=== PATIENT | male | born 1955 | race Caucasian/White ===

== ENCOUNTER 2018-01-05 14:00 | Inpatient (IN) | payer BC ==
[2018-01-05 14:25] VITALS: BMI 22.5
[2018-01-05 15:07] LABS: #Lymphocytes 1.1 thou/uL (1.20-3.40); #Monocytes 0.5 thou/uL (0.11-0.59); #Neutrophils 6.4 thou/uL (1.40-6.50); %Basophils 0.5 % (0.0-1.0); %Eosinophils 0.4 % (0.0-10.0); %Lymphocytes 13.9 % (21.0-51.0); %Monocytes 6.2 % (0.0-10.0); %Neutrophils 79.1 % (42.0-75.0); Mean Corpuscular HGB CONC 33.6 g/dL (32.0-36.0); Mean Corpuscular Hemoglobin 31.4 pg (27.0-31.0); Mean Corpuscular Volume 93.4 fl (80.0-94.0); Mean Platelet Volume 6.7 fL (7.4-10.4); Platelet Count 182 thou/uL (130-400); RBC Distribution Width 12.1 % (11.5-14.5); Red Blood Cell (RBC) Count 5.08 mill/uL (4.70-6.10); White Blood Cell (WBC) Count 8.1 thou/uL (4.8-10.8)
[2018-01-05 15:25] LABS: Anion Gap 15 mmol/L (10-20); BUN (Urea Nitrogen) 15 mg/dL (8.4-25.7); Calc. Creatinine Clearance 95 mL/min (70-130); Calcium 9.1 mg/dL (7.8-10.44); Carbon Dioxide 25 mmol/L (23-31); Chloride 104 mmol/L (98-107); Estimated GFR-MDRD Greater than 90; Glucose 106 mg/dL (80-115); Potassium 3.8 mmol/L (3.5-5.1); Sodium 140 mmol/L (136-145)
[2018-01-05 15:38] LABS: CKMB 13.4 ng/mL (0-6.6); Troponin I 2.109 ng/mL (< 0.028)
[2018-01-05] MEDS ORDERED: Iopamidol 370 76% 50 ML VIAL FS ONE (15:48)
[2018-01-05] MEDS ORDERED: Iopamidol 370 76% 100 ML VIAL ONE (15:48)
[2018-01-05] MEDS ORDERED: Communication Order-Pharmacy FS SCH (16:30)
[2018-01-05] MEDS ORDERED: Carvedilol 3.125 MG TAB PO SCH ×2 (17:00→21:00)
[2018-01-05] MEDS ORDERED: Lidocaine 1% (PF) 30 ML VIAL ONE (17:01)
[2018-01-05] MEDS: Nitroglycerin 2% Ointment 1 INCH/1 GM Packet TOP SCH (17:20)
[2018-01-05] MEDS ORDERED: Fentanyl 250 MCG/5 ML VIAL ONE (17:29)
[2018-01-05] MEDS ORDERED: Midazolam HCl 2 mg/2 ml Vial ONE (17:29)
[2018-01-05] MEDS ORDERED: Nitroglycerin 100MG/250ML BOT 250 ML ONE (17:33)
[2018-01-05] MEDS ORDERED: Verapamil 5 MG/2 ML VIAL ONE (17:33)
[2018-01-05] MEDS ORDERED: Adenosine 6 MG/2 ML VIAL ONE (17:33)
[2018-01-05] MEDS ORDERED: Heparin 10,000 UNITS/1 ML VIAL ONE (18:10)
[2018-01-05] MEDS ORDERED: TICAGRELOR 90 MG TABLET ONE (18:10)
[2018-01-05] MEDS ORDERED: cloNIDine 0.1 MG TAB PO PRN (18:16)
[2018-01-05] MEDS ORDERED: Zolpidem Tartrate 5 MG TAB PO PRN ×2 (18:16→19:00)
[2018-01-05] MEDS ORDERED: Acetaminophen/Codeine 30-300mg Tablet PO PRN ×2 (18:16→19:00)
[2018-01-05] MEDS ORDERED: traMADol HCl 50 MG TAB PO PRN ×2 (18:16→19:00)
[2018-01-05] MEDS ORDERED: Sodium Chloride 0.9% 1,000 ML IV SCH ×2 (18:30→19:00)
[2018-01-05] MEDS ORDERED: Mag-Al 1200 mg/1200 mg/30 ML UDCUP PO PRN (19:00)
[2018-01-05] MEDS ORDERED: Milk Of Magnesia 30 ML UDCUP PO PRN (19:00)
[2018-01-05 20:34] LABS: CKMB 12.7 ng/mL (0-6.6); Troponin I 4.016 ng/mL (< 0.028)
[2018-01-05] MEDS: Atorvastatin Calcium 40 MG TAB PO SCH (20:53)
[2018-01-05] MEDS: TICAGRELOR 90 MG TABLET PO SCH (20:59)
[2018-01-05] MEDS: Carvedilol 3.125 MG TAB PO SCH (21:06)
[2018-01-06] MEDS: Nitroglycerin 2% Ointment 1 INCH/1 GM Packet TOP SCH ×2 (02:48→08:30)
[2018-01-06 05:40] LABS: #Eosinphils 0.2 thou/uL (0.0-0.7); #Lymphocytes 1.2 thou/uL (1.20-3.40); #Monocytes 0.8 thou/uL (0.11-0.59); #Neutrophils 4.5 thou/uL (1.40-6.50); %Basophils 0.6 % (0.0-1.0); %Eosinophils 2.8 % (0.0-10.0); %Lymphocytes 17.9 % (21.0-51.0); %Monocytes 11.7 % (0.0-10.0); Hemoglobin 13.8 g/dL (14.0-18.0); Mean Corpuscular HGB CONC 33.9 g/dL (32.0-36.0); Mean Corpuscular Hemoglobin 31.8 pg (27.0-31.0); Mean Corpuscular Volume 93.6 fl (80.0-94.0); Mean Platelet Volume 6.8 fL (7.4-10.4); Platelet Count 146 thou/uL (130-400); RBC Distribution Width 11.9 % (11.5-14.5); Red Blood Cell (RBC) Count 4.36 mill/uL (4.70-6.10); White Blood Cell (WBC) Count 6.7 thou/uL (4.8-10.8)
[2018-01-06 05:55] LABS: ALT (SGPT) 12 U/L (8-55); AST (SGOT) 26 U/L (5-34); Albumin 3.4 g/dL (3.4-4.8); Alkaline Phosphatase 77 U/L (40-150); Anion Gap 8 mmol/L (10-20); BUN (Urea Nitrogen) 15 mg/dL (8.4-25.7); Bilirubin, Total 1.1 mg/dL (0.2-1.2); Calc. Creatinine Clearance 95 mL/min (70-130); Calcium 8.7 mg/dL (7.8-10.44); Carbon Dioxide 29 mmol/L (23-31); Cardiac Risk 3.7 (Less than 4.5); Chloride 106 mmol/L (98-107); Cholesterol 143 mg/dl (< 200 Desired); Estimated GFR-MDRD Greater than 90; Globulin 1.9 g/dL (2.4-3.5); Glucose 102 mg/dL (80-115); HDL Cholesterol 39 mg/dL (>60 Neg Risk); LDL Cholesterol, Calculated 92 mg/dL; Potassium 4.2 mmol/L (3.5-5.1); Protein, Total 5.3 g/dL (5.8-8.1); Sodium 139 mmol/L (136-145); Triglycerides 62 mg/dL (Less than 150)
[2018-01-06] MEDS ORDERED: Sodium Chloride 0.9% 1,000 ML IV SCH (06:00)
[2018-01-06] MEDS ORDERED: Diazepam 10 MG/2 ML SYRINGE IVP SCH (06:00)
[2018-01-06] MEDS: TICAGRELOR 90 MG TABLET PO SCH ×2 (09:48→20:45)
[2018-01-06] MEDS: Carvedilol 3.125 MG TAB PO SCH ×2 (09:48→20:45)
[2018-01-06] MEDS: Atorvastatin Calcium 40 MG TAB PO SCH (20:45)
[2018-01-07] MEDS: Carvedilol 3.125 MG TAB PO SCH (08:46)
[2018-01-07] MEDS: TICAGRELOR 90 MG TABLET PO SCH (08:46)
[2018-01-07 12:25] VITALS: BP 108/58
[2018-01-07 12:52] VITALS: TEMP 97.8
--- NOTE | 2018-01-07 18:37 | EKG ---
Test Reason : Blood Pressure : / mmHG Vent. Rate : 068 BPM Atrial Rate : 068 BPM P-R Int : 170 ms QRS Dur : 090 ms QT Int : 402 ms P-R-T Axes : 066 050 040 degrees QTc Int : 427 ms Normal sinus rhythm Normal ECG No previous ECGs available Confirmed by RAJ HOLLOWAY, DR. Jaquez (4) on 01/07/2018 6:37:02 PM Referred By: DA Confirmed By:DR. Leonid ANTHONY MD
--- NOTE | 2018-01-07 18:38 | EKG ---
Test Reason : Blood Pressure : / mmHG Vent. Rate : 065 BPM Atrial Rate : 065 BPM P-R Int : 172 ms QRS Dur : 096 ms QT Int : 404 ms P-R-T Axes : 071 057 050 degrees QTc Int : 420 ms Normal sinus rhythm Normal ECG When compared with ECG of 05-JAN-2018 23:57, (Unconfirmed) No significant change was found Confirmed by RAJ HOLLOWAY, . S. (4) on 01/07/2018 6:37:55 PM Referred By: DA Confirmed By:DR. Leonid ANTHONY MD
[2018-01-08] MEDS ORDERED: Lisinopril 2.5 MG TAB PO SCH (09:00)
--- NOTE | 2018-01-09 13:10 | DIS ---
DATE OF ADMISSION: 01/05/2018 DATE OF DISCHARGE: 01/07/2018 DISCHARGE MEDICATIONS: Aspirin 81 q.a.m., atorvastatin 40 q.a.m., carvedilol 3.125 one p.o. b.i.d., lisinopril 0.5 mg daily, and Brilinta 90 mg b.i.d. Follow up with Dr. Barreto in 1-2 weeks. HOSPITAL COURSE: Mr. Mehta is a very pleasant gentleman, who I saw and evaluated in the office. He h ad signs and symptoms suggesting unstable angina. He was subsequently admitted. Initial troponin wa s positive. He continued to have pain. He then underwent urgent coronary angiography. 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 He underwent successful stent placement with a 3.0 Synergy stent. His hospital course was otherwise unremarkable. CONDITION AT DISCHARGE: Stable.
== END 2018-01-07 13:17 | disposition home or self-care (01) | DRG 247 ==
LOC: 2SW 14:00 → UNDOADMIN 14:00 → 2SW 14:17 → OBSVTOIN 14:17 → CCU 19:20
PROVIDERS: ADMIT Internal Medicine Cardiovascular Disease; ATTEND Internal Medicine Cardiovascular Disease
PROC: 4A023N7 Measurement of Cardiac Sampling and Pressure, Left Heart, Percutaneous Approach (ICD-10-PCS; principal; 2018-01-05)
PROC: 027034Z Dilation of Coronary Artery, One Artery with Drug-eluting Intraluminal Device, Percutaneous Approach (ICD-10-PCS; 2018-01-05)
PROC: B2111ZZ Fluoroscopy of Multiple Coronary Arteries using Low Osmolar Contrast (ICD-10-PCS; 2018-01-05)
PROC: B2151ZZ Fluoroscopy of Left Heart using Low Osmolar Contrast (ICD-10-PCS; 2018-01-05)
DX: I25.110 Atherosclerotic heart disease of native coronary artery with unstable angina pectoris (principal); I25.82 Chronic total occlusion of coronary artery; I10 Essential (primary) hypertension; Z79.01 Long term (current) use of anticoagulants; Z79.82 Long term (current) use of aspirin
CPT/HCPCS: 36415; 76942; 80048; 80053; 80061; 82553; 84484; 85025; 85347; 92928; 93005; 93010; 93306; 93458; 93798; 99152; 99153; A4216; C1725; C1769; C1874; C1887; C9600; J0153; J1644; J2001; J2250; J3010